=== PATIENT | female | born 1965 | race Two or more races ===

== ENCOUNTER 2018-10-10 07:15 | Day surgery (SDC) | payer OTHER ==
[2018-10-10] MEDS ORDERED: LIDOCAINE 4% SOLUTION 50 ML BTL (09:15)
[2018-10-10] MEDS ORDERED: MIDAZOLAM 1 MG/ML 2 ML INJ ×2 (10:04)
[2018-10-10] MEDS ORDERED: FENTAnyl 50 MCG/ML VIAL (10:04)
== END 2018-10-10 12:02 | disposition home or self-care (01) ==
LOC: GIL 07:15
DX: R19.5 Other fecal abnormalities (principal); K29.50 Unspecified chronic gastritis without bleeding; K64.9 Unspecified hemorrhoids; K57.30 Diverticulosis of large intestine without perforation or abscess without bleeding
CPT/HCPCS: 43239; 88305; 88312